=== PATIENT | female | born 2000 | race Caucasian/White ===

== ENCOUNTER 2024-03-09 07:33 | Emergency (ER) | payer BC, SELFPAY ==
[2024-03-09 09:19] LABS: #Basophils 0.06 10x3/uL (0.0-0.2); #Eosinphils 0.31 10x3/uL (0.0-0.5); #Monocytes 0.51 10x3/uL (0.0-1.1); #Neutrophils 3.47 10x3/uL (1.5-8.4); %Eosinophils 5.3 % (0.0-6.0); %Lymphocytes 26.1 % (18.0-47.0); %Monocytes 8.6 % (0.0-10.0); %Neutrophils 58.8 % (40.0-75.0); Anion Gap 13 mmol/L (10-20); BUN (Urea Nitrogen) 9 mg/dL (7.0-18.7); Calc. Creatinine Clearance 0 mL/min (70-130); Calcium 9.5 mg/dL (7.6-10.4); Carbon Dioxide 24 mmol/L (22-29); Chloride 109 mmol/L (98-107); Estimated GFR 121; Glucose 108 mg/dL (70-105); Hematocrit 36.9 % (34.9-44.5); Hemoglobin 11.7 g/dL (12.0-15.5); Mean Corpuscular HGB CONC 31.7 g/dL (32.0-36.0); Mean Corpuscular Hemoglobin 23.4 pg (27.0-33.0); Mean Corpuscular Volume 73.8 fl (81.6-98.3); Mean Platelet Volume 9.5 fl (7.4-10.4); Platelet Count 302 10x3/uL (150-450); Potassium 4.4 mmol/L (3.5-5.1); RBC Distribution Width 16.9 % (11.5-14.5); Sodium 142 mmol/L (136-145); White Blood Cell (WBC) Count 5.9 10x3/uL (3.5-10.5)
[2024-03-09 09:20] LABS: Microcytosis SLIGHT = 6-15 cells (100X) (0-5/hpf)
[2024-03-09 09:21] LABS: Troponin I Less than 0.010 ng/mL (< 0.028)
== END 2024-03-09 07:45 | disposition home or self-care (01) ==
LOC: CSHERS 07:33
DX: R07.89 Other chest pain (principal)
CPT/HCPCS: 71046; 80048; 83735; 83880; 84484; 85025; 85379; 93005; 93010